=== PATIENT | female | born 1970 | race Caucasian/White ===

== ENCOUNTER 2017-10-03 02:06 | Inpatient (IN) | payer OTHER ==
[~2017-10-03] VITALS: Ht 162.6 cm; Wt 71.7 kg
[~2017-10-03 02:06] MED LIST: EXCEDRIN MIGRA1 EAC1 PO; IMITREX50 M1 PO; IMITREX6 MG/0.52 SC; PROBIOTIC1 EACH PO
--- NOTE | 2017-10-03 13:05 | Operative Report ---
Operative/Inv Procedure Report Surgery Date: 10/03/17 Name of Procedure: Robotic sigmoid colectomy Pre-Operative Diagnosis: Recurrent sigmoid diverticulitis Post-Operative Diagnosis: Recurrent sigmoid diverticulitis Estimated Blood Loss: less than 50ml Surgeon/Animal Maintenance Supervisor: Quang Fernandez Jr., DO Anesthesia: general endotracheal tube, block Monitors: Per routine IV Fluids: Referral anesthesia note Urine Output: Refer to anesthesia note Drains: None Specimens: Rectosigmoid Complications: None Condition: Good Operative Indication: This is a 47-year-old female with well-established current diverticulitis. She has never had complications of disease but is been treated many times. She has had CT scan confirmation of the disease and she is also a colonoscopy which is excluded other major colon pathology. Her diverticulitis appeared multifocal with area in the sigmoid as well as in the descending colon Operative/Procedure Note Note: On the day before the operation patient did a bowel prep at home including oral antibiotics and oral laxatives On the morning of the procedure the patient drinks 12 ounces of apple juice prior to come to the hospital unfortunately she felt nauseous and vomited When she arrived to [facility] she was given the usual ERAS premedications and there was taken to the operating room In the operating room she received IV antibiotics. She is placed in the supine position on the operating room table. She underwent induction of general anesthesia with placement of both Stewart catheter and endotracheal tube. The anesthesia team then did bilateral TAP blocks. Next the patient was converted to lithotomy position in [facility] she was secured to the bed with both arms tucked. The abdomen was prepped and draped. I gain access to the abdominal cavity with the Veress needle. Veress needle was inserted in the midclavicular line subcostal on the left. The abdomen was insufflated to 15 mmHg. The ports were placed on the line drawn between the xiphoid process in the right quadrant. The #1, #2, and #3 ports were 8 mm ports. #4 port was a 12 mm stapling port. A right lower quadrant 8 mm air seal port was also placed for the assistant director of admissions. At this point laparoscopic exploration of the abdominal cavity was performed I could see 2 distinct areas of diverticulitis. The most proximal site of diverticulitis was at the junction of the sigmoid colon and descending colon. The more proximal descending colon and splenic flexure appeared normal to me. A second area of diverticulitis was in the very distal sigmoid colon. This area was inflamed with abnormal adhesions and tethered down in the pelvis. There were abnormal adhesions to her adnexa on the left side. The robot was docked. Lysis of adhesions was then carried out freeing the sigmoid colon from the adnexa and the left lower quadrant also taking down the abnormal adhesions between the more proximal sigmoid colon and the anterior lateral abdominal wall. I could see the right ureter easily in the right retroperitoneum without needing to dissect here. At this point a medial to lateral dissection was initiated. I grasped the colon elevated towards the anterior abdominal wall incised the peritoneum at the level of sacral promontory to the right of the rectosigmoid. Here I entered the posterior avascular space of the rectum I took this dissection to the midportion of the rectum and I divided the lateral stalks on the right partially. Through this dissection I was able to identify the left ureter and the iliac vessels. I could also see the left ovarian artery very well.. Next I took the lateral attachments between the rectosigmoid and retroperitoneum on the left side and partially divided the lateral stalks of the rectum on the left side with the vessel sealer. Next, I Skeletonize the inferior mesenteric vascular pedicle. The vessels were individually ligated and divided with the robotic vessel sealer. I divided these vessels distal to the takeoff of the left colic. After dividing the vessels I continue to medial to lateral dissection freeing the mesocolon off Gerota's fascia all the way to the top of the kidney. I took down the lateral stalks partly with the electrocautery partly with vessel sealer all the way up to the level of the splenic flexure but not including the splenic flexure. The patient had a fairly redundant sigmoid colon so despite having 2 separate areas of diverticulosis that needed to be resected I felt I had enough length at this point. I divided the mesocolon at the level of the rectosigmoid. Once the bowel wall was exposed at the rectosigmoid a robotic TAMI stapler was used to divide the bowel. This was a blue loaded 45 mm cartridge. Only one firing was required. The transected portion of the bowel was grasped with a locking grasper and the pneumoperitoneum was let down and the robot was undocked. We made an extraction incision at the umbilicus. This was a 4 cm incision taken down to the fascia the fascia was divided and a wound protector was placed through the incision. We were able to easily extract the transected bowel through this wound protector. I chose my optimal site of transection to include both areas of diverticulitis. This was basically at the level of the distal descending colon. The mesentery was cleared here with electrocautery and larger bundles of tissue were ligated and divided with 2-0 Vicryl suture. I sharply divided the bowel which was briskly bleeding arterial blood indicating a well vascularized conduit. A handsewn pursestring was performed on the open bowel after removing the specimen from the field. The pursestring was performed with a 2-0 Prolene suture. I chose a 28 EEA stapler for the anastomosis. The head of the anvil was placed into the lumen of the bowel and the pursestring was tied snugly around the PEG of the bowel. The bowel was reduced back into the abdominal cavity Was placed over the wound protector and we reestablished pneumoperitoneum. Once again the bowel was swept out of the pelvis the EEA sizers and then the EEA stapler passed transanally. Once the jean in the appropriate position the spike was advanced. The spike came out made a TAMI staple line just behind the staple line. The 2 ends of the staple were laparoscopically mated. The staple was completely closed and allowed to settle for 30 seconds. The staple was armed fired opened and retrieved. The stapler had 2 excellent donuts. Next a rigid sigmoidoscopy was performed after filling the pelvis with sterile water. There was no bubbling at the anastomosis indicating an airtight anastomosis. The fluid was aspirated out of the pelvis the ports were removed under direct visualization and we prepared for closure. The fascia at the extraction site was closed with running #1 PDS suture. Subcu tissue was copiously irrigated here. The skin was then closed with mattress 3-0 nylon sutures. The smaller ports were closed with subcuticular 4-0 Monocryl and then skin glue. A dry sterile dressing was placed over the extraction site. The patient was converted back to supine activity in the operating room and taken to recovery area in good condition. At the end of the operation all needle sponges and instruments were accounted for. Findings: 2 areas of diverticulitis: One area at junction of descending colon and sigmoid, second area of distal sigmoid Both areas resected en bloc together Discharge Disposition: Same Day Admissions
--- NOTE | 2017-10-03 16:33 | Admission Core Measures ---
Acute Coronary Syndrome (CM) ACS Core Measures Acute Coronary Syndrome Diagnosis No Congestive Heart Failure (NEW) CHF Core Measures Congestive Heart Failure Diagnosis No Cerebrovascular Accident CVA Core Measures CVA/TIA Diagnosis No Venous Thromboembolism VTE Core Chyna (View Protocol) VTE Risk Factors Age>40 No Mechanical VTE Prophylaxis d/t N/A MechProphylax Ordered No VTE Pharm Prophylaxis d/t NA PharmProphylax ordered Problem List As ranked by this Provider includes Assessment & Plan 1. Diverticulitis large intestine 2. S/P colectomy HOME MEDS Home Med List Aspirin/Acetaminophen/Caffeine (Excedrin Migraine Caplet) 250 MG-250 MG-65 MG TABLET 2 TAB PO PRN MIGRAINES (Reported) Lactobacillus Acidophilus (Probiotic) (Unknown Strength) CAPSULE (Unknown Dose ) PO DAILY PROBIOTIC (Reported) Sumatriptan Succinate (Imitrex) 50 MG TABLET 1 TAB PO AD PRN MIGRAINES ( Reported) Sumatriptan Succinate (Imitrex) 6 MG/0.5 ML PEN.INJCTR 6 MG SC AD PRN MIGRAINES (Reported)
--- NOTE | 2017-10-03 16:38 | PN- General Surgery ---
Subjective Subjective: Complains of generalized abdominal soreness on her postoperative check. There is no nausea no vomiting. She is recovering well having tolerated the procedure without complications Objective Vital Signs and I&Os Vital signs stable, afebrile Physical Exam: Well-developed well-nourished no apparent distress. HEENT: Atraumatic, extraocular motion intact Neck: Supple, no lymphadenopathy Respiratory: No respiratory distress Abdomen: Generalized abdominal soreness on exam with appropriate tenderness, mild abdominal distention, dressings clean dry and intact Extremities: No edema, no calf pain Neuro: Alert and oriented x3 Psych: Mood affect normal, normal memory normal judgment. Skin: Warm and dry, no rash on exposed skin Assessment/Plan Assessment/Plan Postop day #0 status post robotic sigmoid colectomy secondary to recurrent diverticulitis Surgically stable postoperatively. IV fluids until tolerating adequate p.o. ERAS protocol: Minimize narcotics, gabapentin, clear liquid diet, advance as tolerated Hold NSAIDs No perioperative antibiotics required Out of bed, ambulate Heparin subcu for DVT prophylaxis Dressing change postop day 2 A.m. labs IS to bedside, use 10 times per hour As needed pain meds, attempt to minimize narcotics Core Measures Venous Thromboembolism VTE Risk Factors Age>40 No Mechanical VTE Prophylaxis d/t N/A MechProphylax Ordered No VTE Pharm Prophylaxis d/t NA PharmProphylax ordered
[2017-10-03 17:31] VITALS: BP 138/88
[2017-10-03 19:11] VITALS: BP 118/76
[2017-10-03 20:48] VITALS: BP 121/73
[2017-10-04 03:52] VITALS: BP 113/73
[2017-10-04 06:39] VITALS: BP 105/60
[2017-10-04 08:17] LABS: ABSOLUTE BASOPHIL COUNT 0 /CUMM (0.0-0.2); ABSOLUTE EOSINOPHIL COUNT 0 /CUMM (0.0-0.7); ABSOLUTE LYMPH COUNT 0.9 /CUMM (1.2-3.4); BASOPHIL % 0.3 % (0.0-2.0); EOSINOPHIL % 0.3 % (0-5)
--- NOTE | 2017-10-04 08:31 | PN- General Surgery ---
See Addendum Subjective Subjective: Patient reports pain controlled. She reports pain with deep inspiration. She is tolerating clears last night an this morning without nausea or vomiting. She reports belching once and ambulating in the halls. Denies passing flatus. Objective Vital Signs and I&Os Vital Signs Date Time Temp Pulse Resp B/P B/P Pulse O2 O2 Flow FiO2 Mean Ox Delivery Rate 10/04 0639 97.9 66 20 105/60 99 Room Air 10/04 0352 97.8 85 20 113/73 97 Room Air 10/04 2047 99.5 95 20 121/73 95 Room Air 10/03 2022 Room Air 10/03 191 99.6 100 18 118/76 96 10/03 1731 98.8 103 18 138/88 99 Intake & Output 10/04 1600 10/04 0800 10/04 0000 10/03 1600 10/03 0800 10/03 0000 Intake Total 1080 465 Output Total 450 Balance 630 465 Intake, IV 600 225 Intake, Oral 480 240 Number 0 0 Bowel Movements Output, Urine 450 Patient 158 lb Weight Weight Standing Scale Measurement Method Physical Exam: Gen - nad Cardiac - S1S2 noted Lungs - CTAB Abd - soft, mildly distended, incisions healing well with no signs of infection, midline dressing slightly saturated, bs presents, dull to percussion, appropriately tender harsha-incisionally, no rebound or guarding noted Ext - alsp in place, no edema orc savannah tenderness Current Medications: Current Medications Sig/Nghia Start time Last Medication Dose Route Stop Time Status Admin Acetaminophen 1,000 MG Q6 10/03 1800 AC 10/04 PO 0633 Acetaminophen 1,000 MG Q6P PRN 10/03 1315 DC PO Acetaminophen 1,000 MG .STK-MED ONE 10/03 0916 DC IV 10/03 0917 Acetaminophen 0 .STK-MED ONE 10/03 0836 DC PO Alvimopan 12 MG BID 10/03 1445 AC 10/03 PO 2012 Fentanyl Citrate 200 MCG .STK-MED ONE 10/03 0923 DC IM 10/03 0924 Fentanyl Citrate 100 MCG .STK-MED ONE 10/03 0915 DC IM 10/03 0916 Gabapentin 300 MG TID 10/04 0900 AC PO Gabapentin 300 MG TID 10/03 1400 DC PO Gabapentin 0 .STK-MED ONE 10/03 0837 DC PO Heparin Sodium 5,000 UNIT Q8 10/03 1400 AC 10/04 (Porcine) SC 0634 Heparin Sodium 0 .STK-MED ONE 10/03 0837 DC (Porcine) .ROUTE Hydromorphone HCl 2 MG .STK-MED ONE 10/03 0923 DC IM 10/03 0924 Meperidine HCl 50 MG .STK-MED ONE 10/03 1259 DC IM 10/03 1300 Metronidazole 500 MG ONCE ONE 10/03 0815 DC N/A 1 UNIT IV 10/03 0914 Midazolam HCl 2 MG .STK-MED ONE 10/03 1307 DC IM 10/03 1308 Midazolam HCl 2 MG .STK-MED ONE 10/03 0916 DC IM 10/03 0917 Ondansetron HCl 4 MG Q6P PRN 10/03 1315 AC IV Ondansetron HCl 0 .STK-MED ONE 10/03 0936 DC .ROUTE Oxycodone HCl 10 MG Q6PRN PRN 10/03 1415 AC 10/04 PO 0351 Oxycodone HCl 5 MG Q4 HRS NEEDED PRN 10/03 1330 DC PO Oxycodone HCl 10 MG Q4 HRS NEEDED PRN 10/03 1330 DC PO Remifentanil 3 MG .STK-MED ONE 10/03 0922 DC IV 10/03 0923 Remifentanil 1 MG .STK-MED ONE 10/03 0915 DC IV 10/03 0916 Scopolamine HBr 0 .STK-MED ONE 10/03 0921 DC TOP Sodium Chloride 1,000 ML Q13H 10/03 1315 AC 10/04 IV 0351 Sumatriptan Succinate 50 MG DAILY NEEDED PRN 10/03 1645 AC 10/04 PO 0351 Tramadol HCl 50 MG Q6-PRN PRN 10/03 1330 AC 10/04 PO 0633 Tramadol HCl 100 MG Q6-PRN PRN 10/03 1330 AC 10/03 PO 1539 Results Last 48 Hours of Labs: Laboratory Tests 10/04 10/03 0615 0730 Chemistry Sodium Pending Potassium Pending Chloride Pending Carbon Dioxide Pending Anion Gap Pending BUN Pending Creatinine Pending BUN/Creatinine Ratio Pending Hematology CBC w Diff Pending WBC Pending RBC Pending Hgb Pending Hct Pending MCV Pending MCH Pending MCHC Pending RDW Pending Plt Count Pending MPV Pending Urines Urine Test NEGATIVE Assessment/Plan Assessment/Plan 47 F POD 1 s/p robotic sigmoid colectomy secondary to recurrent diverticulitis, recovering well Advance to fulls, d/c IVF ERAS protocol Home med on board Entereg until bm DVT ppx - hsq Encourage ambulation, IS Out of bed, ambulate D/c mcgraw F/u labs Will d/w Dr. Fernandez Core Measures Venous Thromboembolism VTE Risk Factors Age>40 No Mechanical VTE Prophylaxis d/t N/A MechProphylax Ordered No VTE Pharm Prophylaxis d/t NA PharmProphylax ordered
[2017-10-04 08:54] LABS: ABSOLUTE GRANULOCYTE CT 7.1 /CUMM (1.4-6.5); ABSOLUTE MONOCYTE COUNT 0.6 /CUMM (0.10-0.60); GRANULOCYTE % 82.6 % (42.2-75.2); HEMATOCRIT 32.8 % (37-47); MEAN CORPUSCULAR HGB 25.9 PG (27.0-31.0); MEAN CORPUSCULAR HGB CONC 33.3 G/DL (33.0-37.0); MEAN CORPUSCULAR VOLUME 77.8 FL (81.0-99.0); MEAN PLATELET VOLUME 7.8 FL (7.4-10.4); PLATELET COUNT 288 /CUMM (130-400); RBC DISTRIBUTION WIDTH 15.9 % (11.5-14.5); RED BLOOD CELL CT 4.22 /CUMM (4.20-5.40); WHITE BLOOD CELL COUNT 8.5 /CUMM (4.8-10.8)
[2017-10-04 14:02] VITALS: BP 112/58
[2017-10-04 22:38] VITALS: BP 132/73
--- NOTE | 2017-10-05 07:37 | PN- General Surgery ---
See Addendum Subjective Subjective: Patient seen and evaluated. No acute events overnight. Reports she tolerated low residue diet yesterday without associated n/v. Pain is well controlled. She does endorse having moderate flatus but no BM yet. She is voiding without problems and ambulating hallway. Otherwise, no active issues Objective Vital Signs and I&Os Vital Signs Date Time Temp Pulse Resp B/P B/P Pulse O2 O2 Flow FiO2 Mean Ox Delivery Rate 10/04 2238 98.9 85 20 132/73 97 Room Air 10/04 1402 99.2 96 20 112/58 97 Room Air Intake & Output 10/05 0810/05 0000 10/04 1600 10/04 0810/04 0000 10/03 1600 Intake Total 480 3380 368 2390 465 Output Total 800 400 650 450 Balance -320 690 300 630 465 Intake, IV 0 10 150 600 225 Intake, Oral 480 1080 800 480 240 Number 0 0 0 0 Bowel Movements Output, Urine 800 400 650 450 Patient 158 lb Weight Weight Standing Scale Measurement Method Physical Exam: General: middle age female, laying supine in bed, answer questions without problems, NAD Cardiac: RRR, +s1s2 Pulm: cta b/l Abdomen: surgical incisions well approximated with dermabond, umbilical dressing in place and is c/d/i, bowel sounds present, mild tenderness, no guarding/ distention Neuro: AAOx3 Current Medications: Current Medications Sig/Nghia Start time Last Medication Dose Route Stop Time Status Admin Acetaminophen 1,000 MG Q6 10/03 1800 AC 10/05 PO 0546 Alvimopan 12 MG BID 10/03 1445 AC 10/04 PO 211 Gabapentin 300 MG TID 10/04 0900 AC 10/04 PO 211 Heparin Sodium 5,000 UNIT Q8 10/03 1400 AC 10/05 (Porcine) SC 0546 Ondansetron HCl 4 MG Q6P PRN 10/03 1315 AC IV Oxycodone HCl 10 MG Q6PRN PRN 10/03 1415 AC 10/05 PO 0006 Sodium Chloride 1,000 ML Q13H 10/03 1315 DC 10/04 IV 0351 Sumatriptan Succinate 50 MG DAILY NEEDED PRN 10/03 1645 AC 10/04 PO 213 Tramadol HCl 50 MG Q6-PRN PRN 10/03 1330 AC 10/04 PO 1944 Tramadol HCl 100 MG Q6-PRN PRN 10/03 1330 AC 10/03 PO 1539 Results Last 48 Hours of Labs: Laboratory Tests 10/04 0615 Chemistry Sodium (137 - 145 mmol/L) 135 L Potassium (3.5 - 5.1 mmol/L) 4.0 Chloride (98 - 107 mmol/L) 103 Carbon Dioxide (22 - 30 mmol/L) 24 Anion Gap (5 - 16) 8 BUN (7 - 17 mg/dL) 14 Creatinine (0.5 - 1.0 mg/dL) 0.8 Estimated GFR (>60 ml/min) > 60 BUN/Creatinine Ratio (7 - 25 %) 17.5 Hematology CBC w Diff NO MAN DIFF REQ WBC (4.8 - 10.8 /CUMM) 8.5 RBC (4.20 - 5.40 /CUMM) 4.22 Hgb (12.0 - 16.0 G/DL) 10.9 L Hct (37 - 47 %) 32.8 L MCV (81.0 - 99.0 FL) 77.8 L MCH (27.0 - 31.0 PG) 25.9 L MCHC (33.0 - 37.0 G/DL) 33.3 RDW (11.5 - 14.5 %) 15.9 H Plt Count (130 - 400 /CUMM) 288 MPV (7.4 - 10.4 FL) 7.8 Gran % (42.2 - 75.2 %) 82.6 H Lymphocytes % (20.5 - 51.1 %) 10.4 L Monocytes % (1.7 - 9.3 %) 6.4 Eosinophils % (0 - 5 %) 0.3 Basophils % (0.0 - 2.0 %) 0.3 Absolute Granulocytes (1.4 - 6.5 /CUMM) 7.1 H Absolute Lymphocytes (1.2 - 3.4 /CUMM) 0.9 L Absolute Monocytes (0.10 - 0.60 /CUMM) 0.6 Absolute Eosinophils (0.0 - 0.7 /CUMM) 0 Absolute Basophils (0.0 - 0.2 /CUMM) 0 Assessment/Plan Assessment/Plan 47 F POD 2 s/p robotic sigmoid colectomy secondary to recurrent diverticulitis, recovering well Continue LRD ERAS protocol Home med on board Entereg until bm DVT ppx - hsq Encourage ambulation, IS Out of bed, ambulate Will d/w Dr. Fernandez. Likely stable for home today if hows BM and pending discussion with attending Core Measures Venous Thromboembolism VTE Risk Factors Age>40 No Mechanical VTE Prophylaxis d/t N/A MechProphylax Ordered No VTE Pharm Prophylaxis d/t NA PharmProphylax ordered
[2017-10-05 07:58] VITALS: BP 116/60
[2017-10-05] MEDS ORDERED: OXYCODONE HCL10 M2 PO (11:08)
[2017-10-05] MEDS ORDERED: ACETAMINOPHEN500 M4 PO (11:08)
[2017-10-05] MEDS ORDERED: GABAPENTIN300 M2 PO (11:08)
--- NOTE | 2017-10-05 11:10 | Patient Discharge Instructions ---
Discharge Instructions General Discharge Information You were seen/treated for: Diverticulitis You had these procedures: Robot assisted sigmoid colectomy Watch for these problems: fever, chills, sweats, nausea, vomiting, abdominal pain Do not soak the wound: Yes No bath, but you may shower: Yes Diet Continue normal diet: No (Low fiber diet) Recommended Diet: Low Residue Acute Coronary Syndrome Inclusion Criteria At DC or during hospital stay patient has or had the following: ACS DIAGNOSIS No Discharge Core Measures Meds if any: Prescribed or Continued at Discharge Meds if any: NOT Prescribed or Continued at Discharge Congestive Heart Failure Inclusion Criteria At DC or during hospital stay patient has or had the following: CHF DIAGNOSIS No Discharge Core Measures Meds if any: Prescribed or Continued at Discharge Meds if any: NOT Prescribed or Continued at Discharge Cerebrovascular accident Inclusion Criteria At DC or during hospital stay patient has or had the following: CVA/TIA Diagnosis No Discharge Core Measures Meds if any: Prescribed or Continued at Discharge Meds if any: NOT Prescribed or Continued at Discharge Venous thromboembolism Inclusion Criteria VTE Diagnosis No VTE Type NONE VTE Confirmed by (Test) NONE Discharge Core Measures - Per Current guidelines, there needs to be overlap - treatment for the first 5 days of Warfarin therapy. - If discharged on Warfarin prior to 5 days of - overlap therapy, the patient will need to be - assessed for post discharge needs including - *Post discharge parental anticoagulation - *Warfarin and/or parental anticoagulation education - *Follow up date to check INR post discharge At least 5 days overlap therapy as Inpatient No Meds if any: Prescribed or Continued at Discharge Note: Overlap Therapy is Warfarin and Anticoagulant Meds if any: NOT Prescribed or Continued at Discharge
--- NOTE | 2017-10-05 11:18 | Discharge Summary ---
Visit Information Visit Dates Admission Date: 10/03/17 Discharge Date: 10/05/17 Hospital Course Course Attending Physician: Quang Fernandez Jr., DO Primary Care Physician: Paul Lamb MD Hospital Course: Patient was admitted to surgery service under Dr. Fernandez. She was taken to the operating room on 10/03/17 and underwent Robot assisted sigmoid colectomy. The procedure went without complications. She was extubated in the OR and transfer to the PACU for recovery. Post op she was started on ERAS protocol with early ambulation, clears, and pain meds. Patient progressed well and diet was eventually advanced to low fiber. On day of discharge she was found to be hd stable, pain controlled, bowel function returning. Therefore, she was found to be medically/surgically stable for discharge to home. Allergies: Coded Allergies: ibuprofen (SICK TO STOMACH, NAUSEA 10/01/17) Disposition Summary Disposition Principal Diagnosis: diverticulitis Additional Diagnosis: none Discharge Disposition: home or self care Discharge Instructions General Discharge Information Code Status: Full Code Patient's Diet: Low fiber Patient's Activity: as tolerated Follow-Up Instructions/Appts: fu with Dr. Fernandez in 1 week Medications at Discharge Discharge Medications: Continue taking these medications: Sumatriptan Succinate (Imitrex) 50 MG TABLET 1 Tablet ORAL As Directed as needed for MIGRAINES Comments: Last Taken: 10/04/17 Time: 10:00 PM Sumatriptan Succinate (Imitrex) 6 MG/0.5 ML PEN.INJCTR 6 Milligram SC As Directed as needed for MIGRAINES Comments: NOT GIVEN IN HOSPITAL Lactobacillus Acidophilus (Probiotic) 10 BILLION CELL CAPSULE ORAL DAILY Comments: NOT GIVEN IN HOSPITAL Aspirin/Acetaminophen/Caffeine (Excedrin Migraine Caplet) 250 MG-250 MG-65 MG TABLET 2 Tablet ORAL as needed for MIGRAINES Comments: NOT GIVEN IN HOSPITAL Start taking the following new medications: Acetaminophen (Acetaminophen) 500 MG TABLET 1,000 Milligram ORAL EVERY SIX HOURS as needed for Mild pain Qty = 30 No Refills Gabapentin (Gabapentin) 300 MG CAPSULE 300 Milligram ORAL THREE TIMES DAILY Qty = 21 No Refills Oxycodone HCl (Oxycodone HCl) 10 MG TABLET 10 Milligram ORAL EVERY 6 HOURS NEEDED as needed for PAIN SCALE 7-10 ( SEVERE) Qty = 20 No Refills Copies To: Quang Fernandez Jr., DO Attending MD Review Statement Documenting Attending: Quang Fernandez Jr., DO
== END 2017-10-05 13:00 | DRG 331 ==
LOC: SDA 02:06 → ENRESERV 13:14 → ENTRNSPT 14:35 → EDTRNSPT 14:50 → EDTRNSPTSTS 14:50 → 2NB 14:52 → CMPTRNSPT 15:18 → 2NB 17:15
PROVIDERS: Physician Assistant Surgical
PROC: 0DTN4ZZ Resection of Sigmoid Colon, Percutaneous Endoscopic Approach (ICD-10-PCS; principal; 2017-10-03)
PROC: 8E0W4CZ Robotic Assisted Procedure of Trunk Region, Percutaneous Endoscopic Approach (ICD-10-PCS; principal; 2017-10-03)
DX: K57.32 Diverticulitis of large intestine without perforation or abscess without bleeding (principal); E78.5 Hyperlipidemia, unspecified; G43.909 Migraine, unspecified, not intractable, without status migrainosus; D64.9 Anemia, unspecified
CPT/HCPCS: 2NBP; 36415; 36592; 81025; 82436; 87086; J0131; J0690; J1644; J2405; J3490